=== PATIENT | male | born 1955 | race African-American/Black ===

== ENCOUNTER 2024-02-12 14:00 | Inpatient (IN) | payer OTHER ==
[2024-02-12 14:18] VITALS: BMI 23.5
[2024-02-12] MEDS ORDERED: IBUPROFEN 600 MG TABLET (FP) PO PRN (15:45)
[2024-02-12] MEDS ORDERED: NALOXONE (NARCAN) HCL 4 MG/0.1 ML SPRAY NS PRN (15:45)
[2024-02-12] MEDS ORDERED: BENZONATATE 200 MG CAPSULE PO PRN (15:45)
[2024-02-12] MEDS ORDERED: guaiFENesin 600 MG TABLET.ER (FP) PO PRN (15:45)
[2024-02-12] MEDS ORDERED: BACLOFEN 10 MG TABLET (FP) PO PRN (15:45)
[2024-02-12] MEDS ORDERED: DICYCLOMINE HCL 10 MG CAPSULE PO PRN (15:45)
[2024-02-12] MEDS ORDERED: BISMUTH SUBSALICYLATE 524 MG/30 ML PO PRN (15:45)
[2024-02-12] MEDS ORDERED: LOPERAMIDE HCL 2 MG CAPSULE PO PRN (15:45)
[2024-02-12] MEDS ORDERED: MELATONIN 5 MG TABLETS ONE (23:51)
[2024-02-12] MEDS: THIAMINE 100 MG TABLET PO SCH (23:57)
[2024-02-12] MEDS: MELATONIN 5 MG TABLETS PO SCH (23:57)
[2024-02-13] MEDS ORDERED: methaDONE HCL 40 MG DISPERSABLE TABLET PO SCH (08:30)
[2024-02-13] MEDS: ONDANSETRON *ODT* 4 MG TABLET SL PRN (09:31)
[2024-02-13] MEDS: PRENATAL VITAMINS W/ FOLIC ACID TABLET (FP) PO SCH (09:31)
[2024-02-13] MEDS: NICOTINE 7 MG/24 HOURS TOPICAL PATCH TD SCH (09:31)
[2024-02-13] MEDS: methaDONE 40 MG, methaDONE 30 MG PO SCH (09:31)
[2024-02-13] MEDS ORDERED: ONDANSETRON *ODT* 4 MG TABLET ONE (09:33)
[2024-02-13] MEDS ORDERED: NICOTINE 7 MG/24 HOURS TOPICAL PATCH TD ONE (09:33)
[2024-02-13] MEDS ORDERED: MAG HYDROX/AL HYDROX/SIMETH 30 ML UNIT-DOSE CUP ONE (09:52)
[2024-02-13] MEDS: MAGNESIUM HYDROX 2400MG/30ML ORAL SUSPENSION 30 ML CUP PO PRN (10:27)
[2024-02-13 11:16] LABS: HEMATOCRIT 33.9 % (35.4-49); HEMOGLOBIN 11.4 GM/dL (11.7-16.9); MCH 30.6 pg (25.7-33.7); MCHC 33.5 g/dl (32.0-35.9); MEAN CELL VOLUME 91.1 fl (80-96); MEAN PLT VOLUME 8.9 fl (7.5-11.1); PLATELET COUNT 222 10^3/uL (134-434); RBC 3.72 M/mm3 (4.00-5.60); RDW 16.2 % (11.9-15.9); WHITE BLOOD COUNT 5.2 K/mm3 (4.0-10.0)
[2024-02-13 12:08] LABS: ALBUMIN 3.2 g/dl (3.4-5.0); BLOOD UREA NITROGEN 14.8 mg/dL (7-18); CALCIUM 8.7 mg/dL (8.5-10.1)
[2024-02-13 12:11] LABS: CREATININE 0.9 mg/dL (0.55-1.3)
[2024-02-13 12:13] LABS: BILIRUBIN,TOTAL 0.6 mg/dL (0.2-1); TOT PROT 7.5 g/dl (6.4-8.2)
[2024-02-13] MEDS: NALOXONE (NYS OPIOID OVERDOSE PROGRAM) 4 MG/0.1 ML SPRAY NS SCH (21:15)
[2024-02-13] MEDS: GABAPENTIN 300 MG CAPSULE PO SCH (22:30)
[2024-02-14] MEDS: POLYETHYLENE GLYCOL (HEALTHYLAX) 3350 17 GM PACKET PO PRN (06:35)
[2024-02-15] MEDS: BENZOCAINE/MENTHOL (CHLORASEPTIC ) LOZENGE MM PRN (23:10)
[2024-02-16] MEDS: NICOTINE 21 MG/24 HOURS TOPICAL PATCH TD SCH (09:55)
[2024-02-18] MEDS: IBUPROFEN 400 MG TABLET (FP) PO PRN (10:02)
[2024-02-18] MEDS ORDERED: SENNOSIDES 8.6MG TABLET (FP) PO PRN (13:58)
[2024-02-18] MEDS ORDERED: OXYMETAZOLINE 0.05% NASAL SOLUTION 15 ML BOTTLE NS PRN (14:00)
[2024-02-18] MEDS ORDERED: guaiFENesin 600 MG TABLET.ER (FP) PO PRN (14:01)
[2024-02-18] MEDS: MAG HYDROX/AL HYDROX/SIMETH 30 ML UNIT-DOSE CUP PO PRN (17:57)
[2024-02-18] MEDS: SENNOSIDES 8.8 MG/5 ML SYRUP PO SCH (21:25)
[2024-02-18] MEDS: DOCUSATE SODIUM 100 MG CAPSULE (FP) PO PRN (21:25)
[2024-02-18] MEDS: ACETAMINOPHEN 325 MG TABLET (FP) PO PRN (21:26)
[2024-02-19] MEDS ORDERED: methaDONE HCL 40 MG DISPERSABLE TABLET PO SCH (06:00)
[2024-02-19] MEDS: methaDONE 40 MG, methaDONE 20 MG PO SCH (06:23)
[2024-02-19] MEDS: BENZONATATE 200 MG CAPSULE PO PRN (07:18)
[2024-02-19] MEDS: NICOTINE 7 MG/24 HOURS TOPICAL PATCH TD SCH (09:58)
[2024-02-19 11:09] LABS: INR 1.2 (0.83-1.09); PROTHROMBIN TIME (PATIENT) 13.7 SEC (9.7-13.0)
[2024-02-20] MEDS ORDERED: BISACODYL 10 MG SUPP.RECT PR PRN (11:26)
[2024-02-20] MEDS ORDERED: methaDONE HCL 40 MG DISPERSABLE TABLET PO SCH (11:27)
[2024-02-20] MEDS: PETROLATUM, WHITE 30 GM TUBE TP PRN (12:55)
[2024-02-20] MEDS: SODIUM PHOSPHATE/NA BIPHOS 133 ML ENEMA RC ONE (12:56)
[2024-02-21] MEDS: methaDONE 40 MG, methaDONE 10 MG PO SCH (06:26)
[2024-02-21] MEDS: SALICYLIC ACID (WART REMOVER) 9 ML LIQUID TP SCH (09:59)
[2024-02-21] MEDS ORDERED: NICOTINE 7 MG/24 HOURS TOPICAL PATCH TD PRN (15:04)
[2024-02-24] MEDS: FERROUS SO4 325 MG TABLET (FP) PO SCH (12:45)
[2024-02-25] MEDS: AMMONIUM LACTATE 12% LOTION 225 GM BOTTLE TP SCH (21:14)
[2024-02-26] MEDS: QUEtiapine FUMARATE 50 MG TABLET PO SCH (21:03)
[2024-02-27] MEDS: methaDONE HCL 40 MG DISPERSABLE TABLET PO SCH (06:13)
[2024-02-28] MEDS ORDERED: SALICYLIC ACID (WART REMOVER) 9 ML LIQUID TP PRN (13:23)
[2024-03-03] MEDS: methaDONE HCL 10 MG TABLET PO SCH (06:37)
[2024-03-04] MEDS ORDERED: METHOCARBAMOL 500 MG TABLET PO PRN (18:52)
[2024-03-04] MEDS ORDERED: hydrOXYzine PAMOATE 25 MG CAPSULE (FP) PO PRN (18:52)
[2024-03-04] MEDS ORDERED: BENZOCAINE/MENTHOL (CHLORASEPTIC ) LOZENGE MM PRN (18:52)
[2024-03-04] MEDS ORDERED: BENZONATATE 200 MG CAPSULE PO PRN (18:52)
[2024-03-04] MEDS ORDERED: DICYCLOMINE HCL 10 MG CAPSULE PO PRN (18:52)
[2024-03-05] MEDS: methaDONE HCL 10 MG TABLET PO SCH (06:06)
[2024-03-07] MEDS: RIFAXIMIN 550 MG TABLET PO SCH (13:47)
[2024-03-08] MEDS ORDERED: methaDONE HCL 10 MG TABLET PO SCH (06:00)
[2024-03-11 06:33] VITALS: RESP 16
[2024-03-12 06:33] VITALS: BP 142/88; PULSE 64; TEMP 98
[2024-03-12] MEDS: NALOXONE (NYS OPIOID OVERDOSE PROGRAM) 4 MG/0.1 ML SPRAY NS SCH (09:17)
== END 2024-03-12 09:18 | disposition home or self-care (01) | DRG 895 ==
LOC: YASAS 14:00 → Y3NR 02-13 13:24 → Y3E 02-14 10:00
PROVIDERS: ADMIT Allergy & Immunology; ATTEND Family Medicine Addiction Medicine
PROC: HZ42ZZZ Group Counseling for Substance Abuse Treatment, Cognitive-Behavioral (ICD-10-PCS; principal; 2024-02-13)
DX: F11.20 Opioid dependence, uncomplicated (principal); F19.282 Other psychoactive substance dependence with psychoactive substance-induced sleep disorder; E72.20 Disorder of urea cycle metabolism, unspecified; F10.20 Alcohol dependence, uncomplicated; F17.210 Nicotine dependence, cigarettes, uncomplicated; D64.9 Anemia, unspecified; R79.1 Abnormal coagulation profile; B35.3 Tinea pedis; K59.00 Constipation, unspecified; L85.3 Xerosis cutis; M19.90 Unspecified osteoarthritis, unspecified site; R60.0 Localized edema
CPT/HCPCS: 0241U-QW; 36415; 71045-TC-FY; 80053; 82140; 82652; 83735; 85027; 85610; 86780; 86803; 87522; 93005; 93010; Q0162